=== PATIENT | male | born 1955 | race Caucasian/White ===

== ENCOUNTER → 2020-07-25 | Outpatient (CLI) | payer MEDICARE ==
[~2020-07-25] MED LIST: ADVAIR 250/501 EA INH; DALI500T PO; PROAIR HFA0.09 MG/AC INH; ROCEPHIN2 GM/50 ML IV; SOLU-MEDROL IV; SOLU-MEDROL40 MG IV; SPIRIVA18 MCG PO
[2020-07-25 12:03] LABS: HEMATOCRIT 43.9 % (42.0-52.0); MEAN CELL VOLUME 92.2 fl (80.0-94.0); MEAN CORPUSCULAR HGB 27.9 pg (27.0-31.0); MEAN CORPUSCULAR HGB CONC 30.3 g/dl (33.0-37.0); MEAN PLATELET VOLUME 11.1 fl (9.6-12.3); RED BLOOD COUNT 4.76 10*6/uL (4.50-5.90); RED CELL DISTRI WIDTH 13.2 % (0-14.5); WHITE BLOOD COUNT 10.6 10*3/uL (4.8-10.8)
[2020-07-25 12:19] LABS: ALBUMIN 3.2 gm/dl (3.1-4.5); ALKALINE PHOSPHATASE 114 U/L (45-117); BUN 21 mg/dl (7-24); CHLORIDE 103 mmol/L (98-107); CHOLESTEROL 165 mg/dL (<200); CREATININE 1.25 mg/dL (0.70-1.30); HDL CHOLESTEROL 60 mg/dl (40-60); LDL CHOLESTEROL 76 mg/dL (9-159); POTASSIUM 4.2 mmol/L (3.5-5.1); SGOT/AST 13 IU/L (3-35); SGPT/ALT 26 U/L (12-78); SODIUM 138 mmol/L (136-145); TOTAL PROTEIN 7.8 gm/dL (6.4-8.2); TRIGLYCERIDES 147 mg/dl (<150); VLDL CHOLESTEROL 29 mg/dL (6-40)
== END | disposition home or self-care (01) ==
LOC: LAB 11:43
PROVIDERS: ATTEND Physician Assistant
DX: J44.9 Chronic obstructive pulmonary disease, unspecified (principal); I10 Essential (primary) hypertension; R60.0 Localized edema; E66.9 Obesity, unspecified

== ENCOUNTER 2021-07-12 16:56 | Inpatient (IN) | payer MEDICARE ==
[~2021-07-12] VITALS: Ht 190.5 cm; Wt 135.7 kg
[2021-07-12 17:16] VITALS: BP 127/73
[2021-07-12] MEDS ORDERED: POTASSIUM CHLO10 ME5 PO (17:29)
[2021-07-12] MEDS ORDERED: FUROSEMIDE20 M1 PO (17:29)
[2021-07-12] MEDS ORDERED: IRBESARTAN150 MG PO (17:30)
[2021-07-12 17:54] LABS: BASO % 0.4 % (0.0-1.0); EOS # 0.6 10*3/uL (0.0-0.4); EOS % 6.9 % (1.0-4.0); HEMATOCRIT 41.5 % (42.0-52.0); LYMPH # 1.8 10*3/uL (1.3-4.4); LYMPH % 20.2 % (27.0-41.0); MEAN CELL VOLUME 97.2 fl (80.0-94.0); MEAN CORPUSCULAR HGB 28.8 pg (27.0-31.0); MEAN CORPUSCULAR HGB CONC 29.6 g/dl (33.0-37.0); MEAN PLATELET VOLUME 10.8 fl (9.6-12.3); MONO # 0.7 10*3/uL (0.1-1.0); MONO % 7.2 % (3.0-9.0); NEUT # 5.8 10*3/uL (2.3-7.9); PLATELET COUNT AUTOMATED 223 10*3/uL (130-400); RED BLOOD COUNT 4.27 10*6/uL (4.50-5.90); RED CELL DISTRI WIDTH 13.6 % (0-14.5)
[2021-07-12 18:09] LABS: ALBUMIN 2.9 gm/dl (3.1-4.5); ALKALINE PHOSPHATASE 101 U/L (45-117); BUN 27 mg/dl (7-24); CHLORIDE 103 mmol/L (98-107); CREATININE 1.15 mg/dL (0.70-1.30); LIPASE 58 U/L (73-393); POTASSIUM 4.6 mmol/L (3.5-5.1); SGOT/AST 16 IU/L (3-35); SGPT/ALT 28 U/L (12-78); SODIUM 141 mmol/L (136-145); TOTAL PROTEIN 7.8 gm/dL (6.4-8.2)
[2021-07-12 18:10] LABS: TROPONIN I < 0.015 ng/ml (<0.045)
[2021-07-12 21:40] VITALS: BP 166/63
[2021-07-12] MEDS ORDERED: INCRUSE ELLI62.5 MCG INH (22:00)
[2021-07-12] MEDS ORDERED: ASPIRIN ADULT L81 M1 PO (22:01)
[2021-07-13] VITALS: BP 139/60
[2021-07-13 05:40] LABS: ALBUMIN 2.5 gm/dl (3.1-4.5); ALKALINE PHOSPHATASE 95 U/L (45-117); BUN 25 mg/dl (7-24); CHLORIDE 104 mmol/L (98-107); CREATININE 1.07 mg/dL (0.70-1.30); POTASSIUM 4.6 mmol/L (3.5-5.1); SGOT/AST 12 IU/L (3-35); SGPT/ALT 24 U/L (12-78); SODIUM 140 mmol/L (136-145); TOTAL PROTEIN 7.1 gm/dL (6.4-8.2)
[2021-07-13 06:12] LABS: BASO # 0.1 10*3/uL (0.0-0.1); BASO % 0.8 % (0.0-1.0); EOS # 0.7 10*3/uL (0.0-0.4); EOS % 7.5 % (1.0-4.0); HEMATOCRIT 40.4 % (42.0-52.0); LYMPH % 21.9 % (27.0-41.0); MEAN CELL VOLUME 97.8 fl (80.0-94.0); MEAN CORPUSCULAR HGB 28.3 pg (27.0-31.0); MEAN PLATELET VOLUME 11.2 fl (9.6-12.3); MONO # 0.7 10*3/uL (0.1-1.0); MONO % 8.2 % (3.0-9.0); NEUT # 5.5 10*3/uL (2.3-7.9); NEUT % 61.2 % (47.0-73.0); PLATELET COUNT AUTOMATED 220 10*3/uL (130-400); RED BLOOD COUNT 4.13 10*6/uL (4.50-5.90); RED CELL DISTRI WIDTH 13.6 % (0-14.5); WHITE BLOOD COUNT 9.1 10*3/uL (4.8-10.8)
[2021-07-13 08:00] VITALS: BP 142/57
[2021-07-13 12:00] VITALS: BP 124/80
[2021-07-13 16:00] VITALS: BP 122/58
[2021-07-13 20:00] VITALS: BP 134/62
[2021-07-13 23:00] VITALS: BP 130/62
[2021-07-14 08:00] VITALS: BP 140/51
[2021-07-14 12:00] VITALS: BP 136/54
[2021-07-14 16:00] VITALS: BP 148/81
[2021-07-14 20:00] VITALS: BP 143/67
[2021-07-15] VITALS: BP 148/63
[2021-07-15 06:15] LABS: BUN 20 mg/dl (7-24); CHLORIDE 102 mmol/L (98-107); CREATININE 1.31 mg/dL (0.70-1.30); POTASSIUM 4.2 mmol/L (3.5-5.1); SODIUM 141 mmol/L (136-145)
[2021-07-15 08:00] VITALS: BP 129/76
[2021-07-15 12:00] VITALS: BP 130/62
[2021-07-15] MEDS ORDERED: VIBRAMYCIN100 MG PO ×2 (13:44)
[2021-07-15] MEDS ORDERED: FLAGYL500 MG PO (15:51)
[2021-07-15] MEDS ORDERED: LEVOFLOXACIN750 M2 PO (15:51)
[2021-07-15] MEDS ORDERED: AMOXICILLIN500 M3 PO (15:51)
[2021-07-15 16:00] VITALS: BP 127/57
== END 2021-07-15 18:15 | disposition home or self-care (01) | DRG 603 ==
LOC: ED 16:56 → EDHOLD 17:53 → 4E 17:53
PROVIDERS: Emergency Medicine; Internal Medicine; Student in an Organized Health Care Education/Training Program; ADMIT Internal Medicine; ATTEND Internal Medicine
DX: L03.116 Cellulitis of left lower limb (principal); E87.3 Alkalosis; E44.0 Moderate protein-calorie malnutrition; N17.9 Acute kidney failure, unspecified; L03.115 Cellulitis of right lower limb; D53.9 Nutritional anemia, unspecified; I83.029 Varicose veins of left lower extremity with ulcer of unspecified site; J44.9 Chronic obstructive pulmonary disease, unspecified; R09.02 Hypoxemia; E83.41 Hypermagnesemia; R73.9 Hyperglycemia, unspecified; E66.9 Obesity, unspecified; I10 Essential (primary) hypertension; Z82.49 Family history of ischemic heart disease and other diseases of the circulatory system; Z79.2 Long term (current) use of antibiotics; Z79.51 Long term (current) use of inhaled steroids; Z79.899 Other long term (current) drug therapy; Z68.37 Body mass index [BMI] 37.0-37.9, adult

== ENCOUNTER 2021-07-18 15:38 | Inpatient (IN) | payer MEDICARE ==
[~2021-07-18] VITALS: Ht 190.5 cm; Wt 135.6 kg
[~2021-07-18 15:38] MED LIST changes: +AMOXICILLIN500 M3 PO; +ASPIRIN ADULT L81 M1 PO; +FLAGYL500 MG PO; +FUROSEMIDE20 M1 PO; +INCRUSE ELLI62.5 MCG INH; +IRBESARTAN150 MG PO; +LEVOFLOXACIN750 M2 PO; +POTASSIUM CHLO10 ME5 PO; +VIBRAMYCIN100 MG PO
[2021-07-18 15:45] VITALS: BP 135/54
[2021-07-18 19:25] VITALS: BP 110/71
[2021-07-18 19:47] LABS: BASO # 0.1 10*3/uL (0.0-0.1); BASO % 0.8 % (0.0-1.0); EOS # 0.5 10*3/uL (0.0-0.4); EOS % 5.3 % (1.0-4.0); HEMATOCRIT 41.4 % (42.0-52.0); LYMPH # 1.8 10*3/uL (1.3-4.4); LYMPH % 20.8 % (27.0-41.0); MEAN CORPUSCULAR HGB 28.3 pg (27.0-31.0); MEAN CORPUSCULAR HGB CONC 28.3 g/dl (33.0-37.0); MEAN PLATELET VOLUME 10.9 fl (9.6-12.3); MONO # 0.5 10*3/uL (0.1-1.0); NEUT # 5.8 10*3/uL (2.3-7.9); NEUT % 66.8 % (47.0-73.0); PLATELET COUNT AUTOMATED 215 10*3/uL (130-400); RED BLOOD COUNT 4.14 10*6/uL (4.50-5.90); RED CELL DISTRI WIDTH 13.6 % (0-14.5); WHITE BLOOD COUNT 8.7 10*3/uL (4.8-10.8)
[2021-07-18 20:03] LABS: ALBUMIN 3.1 gm/dl (3.1-4.5); ALKALINE PHOSPHATASE 96 U/L (45-117); BUN 18 mg/dl (7-24); CHLORIDE 103 mmol/L (98-107); CREATININE 1.09 mg/dL (0.70-1.30); POTASSIUM 4.3 mmol/L (3.5-5.1); SGOT/AST 28 IU/L (3-35); SGPT/ALT 42 U/L (12-78); SODIUM 141 mmol/L (136-145); TOTAL PROTEIN 7.7 gm/dL (6.4-8.2)
[2021-07-19 00:27] VITALS: BP 154/62
[2021-07-19 01:10] LABS: BASO % 0.5 % (0.0-1.0); EOS # 0.4 10*3/uL (0.0-0.4); EOS % 5.6 % (1.0-4.0); HEMATOCRIT 39.3 % (42.0-52.0); LYMPH # 1.5 10*3/uL (1.3-4.4); LYMPH % 19.2 % (27.0-41.0); MEAN CELL VOLUME 97.3 fl (80.0-94.0); MEAN CORPUSCULAR HGB 28.2 pg (27.0-31.0); MONO # 0.6 10*3/uL (0.1-1.0); MONO % 7.4 % (3.0-9.0); NEUT # 5.1 10*3/uL (2.3-7.9); PLATELET COUNT AUTOMATED 198 10*3/uL (130-400); RED BLOOD COUNT 4.04 10*6/uL (4.50-5.90); RED CELL DISTRI WIDTH 13.5 % (0-14.5); WHITE BLOOD COUNT 7.7 10*3/uL (4.8-10.8)
[2021-07-19 03:35] VITALS: BP 146/60
[2021-07-19 05:58] VITALS: BP 144/57
[2021-07-19 06:19] LABS: ALBUMIN 2.7 gm/dl (3.1-4.5); BUN 16 mg/dl (7-24); CHLORIDE 104 mmol/L (98-107); POTASSIUM 3.9 mmol/L (3.5-5.1); SODIUM 143 mmol/L (136-145)
[2021-07-19 06:23] LABS: ALKALINE PHOSPHATASE 84 U/L (45-117); CREATININE 1.11 mg/dL (0.70-1.30); SGOT/AST 28 IU/L (3-35); SGPT/ALT 38 U/L (12-78); TOTAL PROTEIN 6.8 gm/dL (6.4-8.2)
[2021-07-19 06:33] LABS: BASO # 0.1 10*3/uL (0.0-0.1); BASO % 0.6 % (0.0-1.0); EOS # 0.5 10*3/uL (0.0-0.4); EOS % 5.8 % (1.0-4.0); HEMATOCRIT 38.8 % (42.0-52.0); LYMPH # 1.6 10*3/uL (1.3-4.4); LYMPH % 19.6 % (27.0-41.0); MEAN CELL VOLUME 99.5 fl (80.0-94.0); MEAN CORPUSCULAR HGB 28.7 pg (27.0-31.0); MEAN CORPUSCULAR HGB CONC 28.9 g/dl (33.0-37.0); MEAN PLATELET VOLUME 11.1 fl (9.6-12.3); MONO # 0.7 10*3/uL (0.1-1.0); MONO % 8.2 % (3.0-9.0); NEUT # 5.2 10*3/uL (2.3-7.9); NEUT % 65.4 % (47.0-73.0); PLATELET COUNT AUTOMATED 201 10*3/uL (130-400); RED CELL DISTRI WIDTH 13.5 % (0-14.5); WHITE BLOOD COUNT 7.9 10*3/uL (4.8-10.8)
[2021-07-19 06:52] LABS: ACT PARTIAL THROMBO TIME 33.2 SECONDS (20.0-32.1)
[2021-07-19 08:04] VITALS: BP 138/63
[2021-07-19 12:11] VITALS: BP 139/58
[2021-07-19] MEDS ORDERED: PROTONIX40 MG PO (12:26)
[2021-07-19] MEDS ORDERED: COLACE100 MG PO (12:26)
[2021-07-19 14:41] VITALS: BP 133/59
== END 2021-07-19 23:02 | disposition home or self-care (01) | DRG 393 ==
LOC: ED 15:38 → EDHOLD 20:31
PROVIDERS: Hospitalist; Internal Medicine; ADMIT Family Medicine; ATTEND Family Medicine
DX: K64.9 Unspecified hemorrhoids (principal); E43 Unspecified severe protein-calorie malnutrition; J96.10 Chronic respiratory failure, unspecified whether with hypoxia or hypercapnia; D53.9 Nutritional anemia, unspecified; E83.41 Hypermagnesemia; J44.9 Chronic obstructive pulmonary disease, unspecified; R73.9 Hyperglycemia, unspecified; I10 Essential (primary) hypertension; Z87.891 Personal history of nicotine dependence; Z79.2 Long term (current) use of antibiotics; Z79.899 Other long term (current) drug therapy; Z79.51 Long term (current) use of inhaled steroids; Z79.82 Long term (current) use of aspirin; Z82.49 Family history of ischemic heart disease and other diseases of the circulatory system; Z68.37 Body mass index [BMI] 37.0-37.9, adult

== ENCOUNTER → 2022-04-03 | Outpatient (CLI) | payer MEDICARE ==
[~2022-04-03] MED LIST changes: +COLACE100 MG PO; +PROTONIX40 MG PO
[2022-04-03 09:58] LABS: BASO # 0.1 10*3/uL (0.0-0.1); BASO % 0.7 % (0.0-1.0); EOS # 0.5 10*3/uL (0.0-0.4); EOS % 6.4 % (1.0-4.0); HEMATOCRIT 41.1 % (42.0-52.0); LYMPH # 1.6 10*3/uL (1.3-4.4); LYMPH % 20.4 % (27.0-41.0); MEAN CELL VOLUME 98.8 fl (80.0-94.0); MEAN CORPUSCULAR HGB 29.3 pg (27.0-31.0); MEAN CORPUSCULAR HGB CONC 29.7 g/dl (33.0-37.0); MEAN PLATELET VOLUME 11.5 fl (9.6-12.3); MONO # 0.6 10*3/uL (0.1-1.0); MONO % 7.8 % (3.0-9.0); NEUT % 64.3 % (47.0-73.0); PLATELET COUNT AUTOMATED 163 10*3/uL (130-400); RED BLOOD COUNT 4.16 10*6/uL (4.50-5.90); WHITE BLOOD COUNT 7.7 10*3/uL (4.8-10.8)
[2022-04-03 10:09] LABS: ACT PARTIAL THROMBO TIME 32.6 SECONDS (20.0-32.1)
[2022-04-03 10:38] LABS: BUN 20 mg/dl (7-24); CHLORIDE 105 mmol/L (98-107); CREATININE 1.11 mg/dL (0.70-1.30); POTASSIUM 4.5 mmol/L (3.5-5.1); SODIUM 142 mmol/L (136-145)
== END | disposition home or self-care (01) ==
LOC: LAB 09:31
PROVIDERS: ATTEND Surgery Vascular Surgery
DX: Z01.818 Encounter for other preprocedural examination (principal); R06.02 Shortness of breath

== ENCOUNTER 2022-05-28 17:20 | Inpatient (IN) | payer MEDICARE ==
[~2022-05-28] VITALS: Ht 190.5 cm; Wt 130.7 kg
[2022-05-28 17:42] VITALS: BP 128/74
[2022-05-28 17:57] LABS: BASO % 0.4 % (0.0-1.0); EOS # 0.4 10*3/uL (0.0-0.4); EOS % 4.3 % (1.0-4.0); HEMATOCRIT 42.7 % (42.0-52.0); LYMPH # 1.5 10*3/uL (1.3-4.4); LYMPH % 16.6 % (27.0-41.0); MEAN CELL VOLUME 94.9 fl (80.0-94.0); MEAN CORPUSCULAR HGB 28.2 pg (27.0-31.0); MEAN CORPUSCULAR HGB CONC 29.7 g/dl (33.0-37.0); MEAN PLATELET VOLUME 11.1 fl (9.6-12.3); MONO # 0.5 10*3/uL (0.1-1.0); NEUT # 6.5 10*3/uL (2.3-7.9); NEUT % 72.1 % (47.0-73.0); PLATELET COUNT AUTOMATED 227 10*3/uL (130-400); RED CELL DISTRI WIDTH 13.9 % (0-14.5)
[2022-05-28 18:07] LABS: ACT PARTIAL THROMBO TIME 31.6 SECONDS (20.0-32.1)
[2022-05-28 18:12] LABS: ALKALINE PHOSPHATASE 103 U/L (45-117); BUN 21 mg/dl (7-24); CHLORIDE 102 mmol/L (98-107); CREATININE 1.04 mg/dL (0.70-1.30); POTASSIUM 4.3 mmol/L (3.5-5.1); SGOT/AST 17 IU/L (3-35); SGPT/ALT 24 U/L (12-78); SODIUM 139 mmol/L (136-145); TOTAL PROTEIN 7.6 gm/dL (6.4-8.2)
[2022-05-28 18:16] LABS: ABG BASE EXCESS 9.3 mmol/L (-2.0-2.0); ARTERIAL BLOOD GAS PH 7.405 (7.35-7.45); ARTERIAL BLOOD GAS PO2 68.1 (80-90)
[2022-05-28] MEDS ORDERED: CLOPIDOGREL75 MG PO (18:56)
[2022-05-28 20:31] VITALS: BP 163/76
[2022-05-28 20:40] VITALS: BP 163/78
[2022-05-29] VITALS: BP 118/69
[2022-05-29 06:14] LABS: BUN 21 mg/dl (7-24); CHLORIDE 102 mmol/L (98-107); CREATININE 0.96 mg/dL (0.70-1.30); POTASSIUM 4.2 mmol/L (3.5-5.1); SGOT/AST 11 IU/L (3-35); SGPT/ALT 22 U/L (12-78); SODIUM 138 mmol/L (136-145)
[2022-05-29 06:15] LABS: ALKALINE PHOSPHATASE 100 U/L (45-117); TOTAL PROTEIN 7.6 gm/dL (6.4-8.2)
[2022-05-29 06:22] LABS: HEMATOCRIT 41.5 % (42.0-52.0); MEAN CELL VOLUME 93.5 fl (80.0-94.0); MEAN CORPUSCULAR HGB 27.9 pg (27.0-31.0); MEAN CORPUSCULAR HGB CONC 29.9 g/dl (33.0-37.0); MEAN PLATELET VOLUME 11.5 fl (9.6-12.3); PLATELET COUNT AUTOMATED 237 10*3/uL (130-400); RED BLOOD COUNT 4.44 10*6/uL (4.50-5.90); RED CELL DISTRI WIDTH 13.9 % (0-14.5); WHITE BLOOD COUNT 6.9 10*3/uL (4.8-10.8)
[2022-05-29 06:26] LABS: MANUAL DIFF REFLEX YES
[2022-05-29 07:03] LABS: TOTAL CELLS COUNTED 100 #CELLS
[2022-05-29 07:04] LABS: PLATELET SUFFICIENCY NORMAL (NORMAL); POLYCHROMASIA SLIGHT
[2022-05-29 08:00] VITALS: BP 163/78
[2022-05-29 12:00] VITALS: BP 127/73
[2022-05-29 15:07] VITALS: BP 114/87
[2022-05-29 17:00] LABS: BILIRUBIN Negative (Negative); BLOOD Negative (Negative); CLARITY Clear (Clear); COLOR Yellow (Yellow); GLUCOSE Negative (Negative); KETONE Trace (Negative); LEUKO ESTERASE 2+ (Negative); NITRITE Negative (Negative); SPECIFIC GRAVITY 1.025 (1.001-1.030); UROBILINOGEN 0.2 E.U./dl (0.0-1.0)
[2022-05-29 17:10] LABS: BACTERIA 1+; MUCOUS 1+; WBC 21-30 wbc/hpf (0-5)
[2022-05-29 20:00] VITALS: BP 134/56
[2022-05-30] VITALS: BP 141/56
[2022-05-30 06:10] LABS: BASO % 0.1 % (0.0-1.0); HEMATOCRIT 40.8 % (42.0-52.0); LYMPH # 1.1 10*3/uL (1.3-4.4); MEAN CELL VOLUME 94.9 fl (80.0-94.0); MEAN CORPUSCULAR HGB 28.6 pg (27.0-31.0); MEAN CORPUSCULAR HGB CONC 30.1 g/dl (33.0-37.0); MEAN PLATELET VOLUME 11.4 fl (9.6-12.3); MONO # 0.5 10*3/uL (0.1-1.0); MONO % 3.6 % (3.0-9.0); NEUT # 12.3 10*3/uL (2.3-7.9); NEUT % 87.2 % (47.0-73.0); PLATELET COUNT AUTOMATED 250 10*3/uL (130-400); RED CELL DISTRI WIDTH 14.2 % (0-14.5); WHITE BLOOD COUNT 14.1 10*3/uL (4.8-10.8)
[2022-05-30 06:28] LABS: BUN 24 mg/dl (7-24); CHLORIDE 103 mmol/L (98-107); POTASSIUM 4.7 mmol/L (3.5-5.1); SODIUM 139 mmol/L (136-145)
[2022-05-30 08:15] VITALS: BP 141/50
[2022-05-30 12:45] VITALS: BP 138/48
[2022-05-30 16:00] VITALS: BP 165/62
[2022-05-30 20:00] VITALS: BP 138/63
[2022-05-31] VITALS: BP 128/78
[2022-05-31 08:00] VITALS: BP 146/65
[2022-05-31 11:52] VITALS: BP 144/61
[2022-05-31] MEDS ORDERED: LEVOFLOXACIN500 MG PO (12:07)
[2022-05-31] MEDS ORDERED: PREDNISONE10 MG PO (12:07)
== END 2022-05-31 14:21 | disposition home health service (06) | DRG 871 ==
LOC: ED 17:20 → EDHOLD 18:22 → 5E 18:22 → EDHOLD 19:59 → 5E 20:27
PROVIDERS: Emergency Medicine; Family Medicine; ADMIT Student in an Organized Health Care Education/Training Program; ATTEND Student in an Organized Health Care Education/Training Program
DX: A41.9 Sepsis, unspecified organism (principal); E43 Unspecified severe protein-calorie malnutrition; J96.01 Acute respiratory failure with hypoxia; J96.02 Acute respiratory failure with hypercapnia; J44.1 Chronic obstructive pulmonary disease with (acute) exacerbation; E83.41 Hypermagnesemia; I10 Essential (primary) hypertension; R73.9 Hyperglycemia, unspecified; D53.9 Nutritional anemia, unspecified; I87.2 Venous insufficiency (chronic) (peripheral); Z68.36 Body mass index [BMI] 36.0-36.9, adult; Z87.891 Personal history of nicotine dependence; Z82.49 Family history of ischemic heart disease and other diseases of the circulatory system; Z87.19 Personal history of other diseases of the digestive system

== ENCOUNTER → 2023-09-08 | Outpatient (CLI) | payer OTHER ==
[~2023-09-08] MED LIST changes: +CLOPIDOGREL75 MG PO; +DOXYCYCLINE HY100 M3 PO; +LASIX20 MG PO; +LEVOFLOXACIN500 MG PO; +METOPROLOL SUCC25 M2 PO; +PREDNISONE10 MG PO; +VITAMIN D250 MCG PO; +ZITHROMAX TRI-500 M1 PO
== END | disposition home or self-care (01) ==
LOC: WOUNDCARE 01:50
PROVIDERS: ATTEND Nurse Practitioner Family
DX: I70.233 Atherosclerosis of native arteries of right leg with ulceration of ankle (principal); L97.311 Non-pressure chronic ulcer of right ankle limited to breakdown of skin; I70.238 Atherosclerosis of native arteries of right leg with ulceration of other part of lower leg; L97.821 Non-pressure chronic ulcer of other part of left lower leg limited to breakdown of skin; R60.0 Localized edema; I87.2 Venous insufficiency (chronic) (peripheral); I11.0 Hypertensive heart disease with heart failure; I50.9 Heart failure, unspecified; J43.9 Emphysema, unspecified; Z87.891 Personal history of nicotine dependence

== ENCOUNTER 2024-01-19 16:43 | Inpatient (IN) | payer OTHER ==
[~2024-01-19] VITALS: Ht 190.5 cm; Wt 127.7 kg
[2024-01-19 16:52] VITALS: BP 91/61
[2024-01-19 17:32] LABS: MEAN CELL VOLUME 99.8 fl (80.0-94.0); MEAN CORPUSCULAR HGB 28.3 pg (27.0-31.0); MEAN CORPUSCULAR HGB CONC 28.3 g/dl (33.0-37.0); MEAN PLATELET VOLUME 11.2 fl (9.6-12.3); PLATELET COUNT AUTOMATED 155 10*3/uL (130-400); RED BLOOD COUNT 4.21 10*6/uL (4.50-5.90); RED CELL DISTRI WIDTH 14.2 % (0-14.5); WHITE BLOOD COUNT 23.4 10*3/uL (4.8-10.8)
[2024-01-19 17:39] LABS: MANUAL DIFF REFLEX YES
[2024-01-19 17:50] LABS: ACT PARTIAL THROMBO TIME 32.8 SECONDS (20.0-32.1)
[2024-01-19] MEDS ORDERED: AZITHROMYCIN 250 ML IV ONE (17:50)
[2024-01-19] MEDS ORDERED: SODIUM CHLORIDE 0.9% 1,000 ML IV SCH (17:50)
[2024-01-19] MEDS ORDERED: Ceftriaxone Sodium 1 GM/10 ML SYR IV ONE (17:50)
[2024-01-19 17:51] LABS: PLATELET SUFFICIENCY NORMAL (NORMAL); TOTAL CELLS COUNTED 100 #CELLS
[2024-01-19 17:52] LABS: OVALOCYTES FEW; SPHEROCYTES FEW; STOMATOCYTE FEW
[2024-01-19 17:53] LABS: BILIRUBIN Negative (Negative); BLOOD Negative (Negative); CLARITY Clear (Clear); COLOR Dark Yellow (Yellow); GLUCOSE Negative (Negative); KETONE Trace (Negative); LEUKO ESTERASE 1+ (Negative); NITRITE Negative (Negative); SPECIFIC GRAVITY 1.025 (1.001-1.030)
[2024-01-19 17:54] LABS: POTASSIUM 4.1 mmol/L (3.4-5.1); TOTAL PROTEIN 7.1 gm/dL (6.0-8.0)
[2024-01-19 18:03] LABS: MUCOUS 2+; RBC 0-2 rbc/hpf (0-2); WBC 16-20 wbc/hpf (0-5)
[2024-01-19 19:02] VITALS: BP 111/69
[2024-01-19] MEDS ORDERED: ACETAMINOPHEN 325 MG TAB PO PRN (19:45)
[2024-01-19] MEDS ORDERED: BISACODYL 5 MG TAB PO PRN (19:45)
[2024-01-19] MEDS ORDERED: Acetaminophen/Hydrocodone 5 MG/325 MG TABLET PO PRN (19:45)
[2024-01-19 20:27] VITALS: BP 131/55
[2024-01-19 21:00] VITALS: BP 194/61
[2024-01-19] MEDS ORDERED: SODIUM CHLORIDE 0.9% 1,000 ML IV ONE (21:10)
[2024-01-19] MEDS ORDERED: SODIUM CHLORIDE 0.9% 100 ML BAG IV ONE (21:25)
[2024-01-19] MEDS ORDERED: IOHEXOL 350 MG/ML 100 ML VIAL IV ONE (21:25)
[2024-01-19 21:37] LABS: ARTERIAL BLOOD GAS PH 7.229 (7.35-7.45)
[2024-01-19] MEDS ORDERED: Albuterol Sulf/Ipratropium 3 ML VIAL NEB SCH (21:50)
[2024-01-19] MEDS ORDERED: methylPREDNISolone sod succ 125 MG VIAL IV ONE (21:50)
[2024-01-19] MEDS ORDERED: GUAIFENESIN 600 MG TAB ER PO SCH (22:00)
[2024-01-19 23:00] VITALS: BP 127/60
[2024-01-19 23:52] LABS: ABG BASE EXCESS 9.2 mmol/L (-2.0-2.0); ARTERIAL BLOOD GAS PH 7.329 (7.35-7.45)
[2024-01-20] MEDS ORDERED: LORazepam 1 MG TAB PO PRN (04:25)
[2024-01-20 05:20] VITALS: BP 95/63
[2024-01-20 06:28] LABS: HEMATOCRIT 38.9 % (42.0-52.0); MEAN CELL VOLUME 99.7 fl (80.0-94.0); MEAN CORPUSCULAR HGB 27.9 pg (27.0-31.0); MEAN PLATELET VOLUME 11.8 fl (9.6-12.3); PLATELET COUNT AUTOMATED 151 10*3/uL (130-400); RED CELL DISTRI WIDTH 14.5 % (0-14.5); WHITE BLOOD COUNT 27.6 10*3/uL (4.8-10.8)
[2024-01-20 06:29] LABS: MANUAL DIFF REFLEX YES
[2024-01-20 06:32] LABS: FREE T4 0.88 ng/dl (0.89-1.76); POTASSIUM 4.3 mmol/L (3.4-5.1); TOTAL PROTEIN 6.3 gm/dL (6.0-8.0)
[2024-01-20 07:16] LABS: PLATELET SUFFICIENCY NORMAL (NORMAL); POLYCHROMASIA SLIGHT; TOTAL CELLS COUNTED 100 #CELLS
[2024-01-20 07:17] LABS: BURR CELLS FEW; OVALOCYTES FEW; SCHISTOCYTES FEW
[2024-01-20 07:18] LABS: ARTERIAL BLOOD GAS PH 7.362 (7.35-7.45)
[2024-01-20 08:00] VITALS: BP 98/65
[2024-01-20 08:05] LABS: VITAMIN D, 25-HYDROXY 16.1 ng/mL (30-100)
[2024-01-20] MEDS ORDERED: Clopidogrel Hydrogen Sulfate 75 MG TAB PO SCH (10:00)
[2024-01-20] MEDS ORDERED: ROFLUMILAST 500 MCG TAB PO SCH (10:00)
[2024-01-20] MEDS ORDERED: Enoxaparin Sodium 40 MG/0.4 ML SYR SC SCH (10:00)
[2024-01-20] MEDS ORDERED: ASPIRIN, CHEWABLE 81 MG TAB PO SCH (10:00)
[2024-01-20] MEDS ORDERED: METOPROLOL SUCCINATE XR 25 MG TAB PO SCH (10:00)
[2024-01-20] MEDS ORDERED: Ceftriaxone Sodium 2 GM,IV 1 EA in SYRINGE INFUSION 20 ML IV SCH (10:00)
[2024-01-20] MEDS ORDERED: methylPREDNISolone sod succ 40 MG VIAL IV SCH (10:00)
[2024-01-20] MEDS ORDERED: METOPROLOL SUCCINATE XR 50 MG TAB PO SCH (10:35)
[2024-01-20 12:00] VITALS: BP 114/47
[2024-01-20 16:00] VITALS: BP 118/45
[2024-01-20] MEDS ORDERED: AZITHROMYCIN 250 ML IV SCH (17:00)
[2024-01-20] MEDS ORDERED: Ceftriaxone Sodium 1 GM,IV 1 EA in SYRINGE INFUSION 10 ML IV SCH (18:00)
[2024-01-20 20:00] VITALS: BP 132/50
[2024-01-21] VITALS: BP 104/52
[2024-01-21 06:55] LABS: HEMATOCRIT 36.5 % (42.0-52.0); MANUAL DIFF REFLEX YES; MEAN CELL VOLUME 99.7 fl (80.0-94.0); MEAN CORPUSCULAR HGB 28.1 pg (27.0-31.0); MEAN CORPUSCULAR HGB CONC 28.2 g/dl (33.0-37.0); MEAN PLATELET VOLUME 12.3 fl (9.6-12.3); PLATELET COUNT AUTOMATED 138 10*3/uL (130-400); RED BLOOD COUNT 3.66 10*6/uL (4.50-5.90); RED CELL DISTRI WIDTH 14.4 % (0-14.5); WHITE BLOOD COUNT 22.6 10*3/uL (4.8-10.8)
[2024-01-21 07:39] LABS: PLATELET SUFFICIENCY NORMAL (NORMAL); POLYCHROMASIA SLIGHT; TOTAL CELLS COUNTED 100 #CELLS
[2024-01-21 07:40] LABS: OVALOCYTES FEW; TOXIC GRANULATION SLIGHT
[2024-01-21 07:46] LABS: BUN 34 mg/dl (9-23); CHLORIDE 99 mmol/L (98-107); POTASSIUM 4.2 mmol/L (3.4-5.1)
[2024-01-21 08:00] VITALS: BP 137/57
[2024-01-21 12:00] VITALS: BP 118/50
[2024-01-21 16:00] VITALS: BP 117/46
[2024-01-21 20:00] VITALS: BP 138/63
[2024-01-22] VITALS (7 sets, daily range): BP systolic 142–176; BP diastolic 54–80
[2024-01-22] MEDS ORDERED: Doxycycline Hyclate 100 MG CAP PO SCH (10:00)
[2024-01-23] VITALS: BP 153/49
[2024-01-23 08:00] VITALS: BP 151/68
[2024-01-23 09:49] LABS: BASO % 0.1 % (0.0-1.0); HEMATOCRIT 34.2 % (42.0-52.0); LYMPH # 0.7 10*3/uL (1.3-4.4); LYMPH % 6.9 % (27.0-41.0); MEAN CELL VOLUME 97.2 fl (80.0-94.0); MEAN CORPUSCULAR HGB 28.4 pg (27.0-31.0); MEAN CORPUSCULAR HGB CONC 29.2 g/dl (33.0-37.0); MEAN PLATELET VOLUME 11.4 fl (9.6-12.3); MONO # 0.4 10*3/uL (0.1-1.0); MONO % 3.9 % (3.0-9.0); NEUT # 8.7 10*3/uL (2.3-7.9); NUCLEATED RED BLOOD CELL 0.3 % (0.0-0.0); PLATELET COUNT AUTOMATED 153 10*3/uL (130-400); RED BLOOD COUNT 3.52 10*6/uL (4.50-5.90); RED CELL DISTRI WIDTH 14.1 % (0-14.5); WHITE BLOOD COUNT 9.9 10*3/uL (4.8-10.8)
[2024-01-23 10:09] LABS: BUN 35 mg/dl (9-23); CHLORIDE 99 mmol/L (98-107)
[2024-01-23 12:00] VITALS: BP 163/74
[2024-01-23 16:00] VITALS: BP 160/70
[2024-01-23 20:00] VITALS: BP 149/92
[2024-01-24] VITALS: BP 161/66
[2024-01-24 07:25] LABS: BASO % 0.1 % (0.0-1.0); HEMATOCRIT 34.2 % (42.0-52.0); LYMPH # 0.9 10*3/uL (1.3-4.4); MEAN CORPUSCULAR HGB 27.8 pg (27.0-31.0); MEAN CORPUSCULAR HGB CONC 29.2 g/dl (33.0-37.0); MEAN PLATELET VOLUME 11.7 fl (9.6-12.3); MONO # 0.5 10*3/uL (0.1-1.0); MONO % 5.1 % (3.0-9.0); NEUT # 7.7 10*3/uL (2.3-7.9); NEUT % 82.2 % (47.0-73.0); PLATELET COUNT AUTOMATED 185 10*3/uL (130-400); RED CELL DISTRI WIDTH 13.9 % (0-14.5); WHITE BLOOD COUNT 9.3 10*3/uL (4.8-10.8)
[2024-01-24 08:00] VITALS: BP 164/62
[2024-01-24 08:11] LABS: BUN 32 mg/dl (9-23); CHLORIDE 99 mmol/L (98-107); POTASSIUM 4.7 mmol/L (3.4-5.1)
[2024-01-24 12:00] VITALS: BP 159/69
[2024-01-24 16:00] VITALS: BP 1459/69; BP 159/69
[2024-01-24 20:00] VITALS: BP 155/65
[2024-01-25] VITALS: BP 141/54
[2024-01-25 06:06] LABS: HEMATOCRIT 34.9 % (42.0-52.0); MEAN CELL VOLUME 96.9 fl (80.0-94.0); MEAN CORPUSCULAR HGB 28.6 pg (27.0-31.0); MEAN CORPUSCULAR HGB CONC 29.5 g/dl (33.0-37.0); MEAN PLATELET VOLUME 11.3 fl (9.6-12.3); PLATELET COUNT AUTOMATED 197 10*3/uL (130-400); RED CELL DISTRI WIDTH 13.7 % (0-14.5)
[2024-01-25 06:14] LABS: MANUAL DIFF REFLEX YES
[2024-01-25 06:17] LABS: BUN 27 mg/dl (9-23); CHLORIDE 101 mmol/L (98-107)
[2024-01-25 07:08] LABS: PLATELET SUFFICIENCY NORMAL (NORMAL); TOTAL CELLS COUNTED 100 #CELLS
[2024-01-25 07:13] LABS: POLYCHROMASIA SLIGHT
[2024-01-25 08:00] VITALS: BP 156/66
[2024-01-25 12:00] VITALS: BP 154/65
[2024-01-25 16:00] VITALS: BP 157/69
[2024-01-25 20:00] VITALS: BP 166/71
[2024-01-26] VITALS: BP 147/65
[2024-01-26 08:00] VITALS: BP 156/55
[2024-01-26] MEDS ORDERED: PREDNISONE10 MG PO ×2 (11:43→14:50)
[2024-01-26] MEDS ORDERED: DOXYCYCLINE MO100 MG PO (11:43)
[2024-01-26 12:00] VITALS: BP 158/62
[2024-01-26] MEDS ORDERED: VIBRAMYCIN100 MG PO (14:50)
== END 2024-01-26 15:24 | disposition home or self-care (01) | DRG 871 ==
LOC: ED 16:43 → EDHOLD 18:19 → 4E 18:19
PROVIDERS: Emergency Medicine; Internal Medicine; Student in an Organized Health Care Education/Training Program; ADMIT Internal Medicine; ATTEND Internal Medicine
PROC: 5A09357 Assistance with Respiratory Ventilation, Less than 24 Consecutive Hours, Continuous Positive Airway Pressure (ICD-10-PCS; principal; 2024-01-19)
PROC: 5A09357 Assistance with Respiratory Ventilation, Less than 24 Consecutive Hours, Continuous Positive Airway Pressure (ICD-10-PCS; 2024-01-20)
PROC: 5A0935A Assistance with Respiratory Ventilation, Less than 24 Consecutive Hours, High Flow/Velocity Cannula (ICD-10-PCS; 2024-01-20)
PROC: 5A09357 Assistance with Respiratory Ventilation, Less than 24 Consecutive Hours, Continuous Positive Airway Pressure (ICD-10-PCS; 2024-01-21)
PROC: 5A0935A Assistance with Respiratory Ventilation, Less than 24 Consecutive Hours, High Flow/Velocity Cannula (ICD-10-PCS; 2024-01-21)
PROC: 5A09357 Assistance with Respiratory Ventilation, Less than 24 Consecutive Hours, Continuous Positive Airway Pressure (ICD-10-PCS; 2024-01-22)
PROC: 5A0935A Assistance with Respiratory Ventilation, Less than 24 Consecutive Hours, High Flow/Velocity Cannula (ICD-10-PCS; 2024-01-22)
PROC: 5A09357 Assistance with Respiratory Ventilation, Less than 24 Consecutive Hours, Continuous Positive Airway Pressure (ICD-10-PCS; 2024-01-23)
PROC: 5A0945A Assistance with Respiratory Ventilation, 24-96 Consecutive Hours, High Flow/Velocity Cannula (ICD-10-PCS; 2024-01-23)
DX: A41.9 Sepsis, unspecified organism (principal); J15.69 Pneumonia due to other Gram-negative bacteria; J96.22 Acute and chronic respiratory failure with hypercapnia; J96.21 Acute and chronic respiratory failure with hypoxia; E87.20 Acidosis, unspecified; J44.1 Chronic obstructive pulmonary disease with (acute) exacerbation; J44.0 Chronic obstructive pulmonary disease with (acute) lower respiratory infection; I50.32 Chronic diastolic (congestive) heart failure; R65.20 Severe sepsis without septic shock; D53.9 Nutritional anemia, unspecified; R73.9 Hyperglycemia, unspecified; N40.0 Benign prostatic hyperplasia without lower urinary tract symptoms; K57.30 Diverticulosis of large intestine without perforation or abscess without bleeding; I87.2 Venous insufficiency (chronic) (peripheral); I11.0 Hypertensive heart disease with heart failure; E66.9 Obesity, unspecified; Z99.81 Dependence on supplemental oxygen; Z87.891 Personal history of nicotine dependence; Z82.49 Family history of ischemic heart disease and other diseases of the circulatory system; Z79.82 Long term (current) use of aspirin; Z79.51 Long term (current) use of inhaled steroids; Z79.899 Other long term (current) drug therapy; Z68.35 Body mass index [BMI] 35.0-35.9, adult

== ENCOUNTER → 2024-02-01 | Outpatient (CLI) | payer OTHER ==
[~2024-02-01] MED LIST changes: +DOXYCYCLINE MO100 MG PO
[2024-02-01 14:35] LABS: HEMATOCRIT 36.1 % (42.0-52.0); MEAN CELL VOLUME 98.9 fl (80.0-94.0); MEAN CORPUSCULAR HGB 27.9 pg (27.0-31.0); MEAN CORPUSCULAR HGB CONC 28.3 g/dl (33.0-37.0); MEAN PLATELET VOLUME 10.5 fl (9.6-12.3); PLATELET COUNT AUTOMATED 190 10*3/uL (130-400); RED BLOOD COUNT 3.65 10*6/uL (4.50-5.90); RED CELL DISTRI WIDTH 14.5 % (0-14.5); WHITE BLOOD COUNT 9.7 10*3/uL (4.8-10.8)
[2024-02-01 14:38] LABS: MANUAL DIFF REFLEX YES
[2024-02-01 14:55] LABS: PLATELET SUFFICIENCY NORMAL (NORMAL); TOTAL CELLS COUNTED 100 #CELLS
[2024-02-01 14:56] LABS: BUN 27 mg/dl (9-23); CHLORIDE 98 mmol/L (98-107); OVALOCYTES FEW; POTASSIUM 4.4 mmol/L (3.4-5.1); STOMATOCYTE FEW
== END | disposition home or self-care (01) ==
LOC: LAB 14:15
PROVIDERS: ATTEND Registered Nurse
DX: J96.22 Acute and chronic respiratory failure with hypercapnia (principal); J18.9 Pneumonia, unspecified organism

== ENCOUNTER → 2024-05-25 | Outpatient (CLI) | payer OTHER | END | disposition home or self-care (01) | LOC: CARD 01:44 | PROVIDERS: ATTEND Internal Medicine Cardiovascular Disease | DX: I25.10 Atherosclerotic heart disease of native coronary artery without angina pectoris (principal); R60.0 Localized edema ==

== ENCOUNTER → 2025-04-07 | Outpatient (CLI) | payer OTHER | LOC: WOUNDCARE 00:20 | PROVIDERS: ATTEND Nurse Practitioner Primary Care | DX: I83.018 Varicose veins of right lower extremity with ulcer other part of lower leg (principal); L97.812 Non-pressure chronic ulcer of other part of right lower leg with fat layer exposed; I83.028 Varicose veins of left lower extremity with ulcer other part of lower leg; L97.822 Non-pressure chronic ulcer of other part of left lower leg with fat layer exposed; R60.0 Localized edema; I89.0 Lymphedema, not elsewhere classified; I11.0 Hypertensive heart disease with heart failure; I50.9 Heart failure, unspecified; I25.10 Atherosclerotic heart disease of native coronary artery without angina pectoris; I73.9 Peripheral vascular disease, unspecified; J44.9 Chronic obstructive pulmonary disease, unspecified; G47.00 Insomnia, unspecified; K57.90 Diverticulosis of intestine, part unspecified, without perforation or abscess without bleeding; Z98.890 Other specified postprocedural states; Z87.891 Personal history of nicotine dependence; Z79.82 Long term (current) use of aspirin; Z79.899 Other long term (current) drug therapy ==

== ENCOUNTER 2025-04-11 10:25 | Emergency (ER) | payer OTHER ==
[~2025-04-11] VITALS: Ht 190.5 cm; Wt 142.6 kg
[2025-04-11] MEDS ORDERED: Acetaminophen/Oxycodone 5 MG/325 MG TABLET PO ONE (10:30)
[2025-04-11] MEDS ORDERED: TRAMADOL HCL50 MG PO (11:17)
== END 2025-04-11 11:36 | disposition home or self-care (01) ==
LOC: ED 10:25
DX: S83.91XA Sprain of unspecified site of right knee, initial encounter (principal); M54.50 Low back pain, unspecified; J44.9 Chronic obstructive pulmonary disease, unspecified; Z79.899 Other long term (current) drug therapy; Z98.890 Other specified postprocedural states; W01.0XXA Fall on same level from slipping, tripping and stumbling without subsequent striking against object, initial encounter; Y93.9 Activity, unspecified; Y92.89 Other specified places as the place of occurrence of the external cause; Y99.8 Other external cause status

== ENCOUNTER 2025-04-17 00:43 | Inpatient (IN) | payer OTHER ==
[2025-04-17] VITALS (11 sets, daily range): BP systolic 111–170; BP diastolic 54–98
[~2025-04-17] VITALS: Ht 190.5 cm; Wt 144.2 kg
[~2025-04-17 00:43] MED LIST changes: +TRAMADOL HCL50 MG PO
[2025-04-17] MEDS ORDERED: Albuterol Sulf/Ipratropium 3 ML VIAL NEB ONE (00:55)
[2025-04-17 01:14] LABS: BASO % 0.4 % (0.0-1.0); EOS # 0.1 10*3/uL (0.0-0.4); EOS % 1.5 % (1.0-4.0); HEMATOCRIT 31.7 % (42.0-52.0); MEAN CELL VOLUME 100.6 fl (80.0-94.0); MEAN CORPUSCULAR HGB 27.6 pg (27.0-31.0); MEAN CORPUSCULAR HGB CONC 27.4 g/dl (33.0-37.0); MEAN PLATELET VOLUME 10.5 fl (9.6-12.3); MONO # 0.7 10*3/uL (0.1-1.0); MONO % 8.1 % (3.0-9.0); NEUT # 6.5 10*3/uL (2.3-7.9); NEUT % 75.9 % (47.0-73.0); PLATELET COUNT AUTOMATED 185 10*3/uL (130-400); RED BLOOD COUNT 3.15 10*6/uL (4.50-5.90); RED CELL DISTRI WIDTH 15.6 % (0-14.5); WHITE BLOOD COUNT 8.5 10*3/uL (4.8-10.8)
[2025-04-17 01:26] LABS: ACT PARTIAL THROMBO TIME 28.6 SECONDS (20.0-32.1)
[2025-04-17 01:35] LABS: ALKALINE PHOSPHATASE 92 U/L (46-116); BUN 28 mg/dl (9-23); CHLORIDE 96 mmol/L (98-107); POTASSIUM 4.5 mmol/L (3.4-5.1); SGPT/ALT 14 U/L (5-49); TOTAL PROTEIN 6.1 gm/dL (6.0-8.0)
[2025-04-17] MEDS ORDERED: Piperacillin Sodium/Tazobact 50 ML IV ONE (02:20)
[2025-04-17] MEDS ORDERED: TEMAZEPAM 15 MG CAP PO PRN (02:55)
[2025-04-17] MEDS ORDERED: BISACODYL 10 MG SUPP R PRN (02:55)
[2025-04-17] MEDS ORDERED: MORPHINE Sulfate 2 MG/ML SYR IV PRN (02:55)
[2025-04-17] MEDS ORDERED: Magnesium Hydroxide 30 ML UDC PO PRN (02:55)
[2025-04-17] MEDS ORDERED: Acetaminophen/Hydrocodone 5 MG/325 MG TABLET PO PRN (02:55)
[2025-04-17] MEDS ORDERED: BISACODYL 5 MG TAB PO PRN (02:55)
[2025-04-17] MEDS ORDERED: ACETAMINOPHEN 650 MG SUPP R PRN (02:55)
[2025-04-17] MEDS ORDERED: ACETAMINOPHEN 325 MG TAB PO PRN (02:55)
[2025-04-17] MEDS ORDERED: Albuterol Sulf/Ipratropium 3 ML VIAL NEB SCH (03:00)
[2025-04-17] MEDS ORDERED: cefTRIAXone Sodium 1 GM VIAL ONE (03:45)
[2025-04-17] MEDS ORDERED: cefTRIAXone Sodium 1 GM in SYRINGE INFUSION 10 ML IV SCH (04:00)
[2025-04-17 04:10] LABS: ABG O2 SATURATION 88.9 % (94.0-98.0); ARTERIAL BLOOD GAS PH 7.399 (7.350-7.450); ARTERIAL BLOOD GAS PO2 56.5 mmHg (83.0-108.0)
[2025-04-17 04:13] LABS: ABG BASE EXCESS 19.8 mmol/L (-2.0-3.0)
[2025-04-17] MEDS ORDERED: Ondansetron Hydrochloride 4 MG/2 ML VIAL IV ONE (05:20)
[2025-04-17] MEDS ORDERED: Scopolamine 1 PATCH PATCH T PRN (05:25)
[2025-04-17] MEDS ORDERED: Promethazine Hydrochloride 25 MG/ML VIAL IV ONE (05:25)
[2025-04-17 05:54] LABS: ALKALINE PHOSPHATASE 94 U/L (46-116); BUN 26 mg/dl (9-23); CHLORIDE 97 mmol/L (98-107); CHOLESTEROL 132 mg/dL (<200); FREE T4 1.02 ng/dl (0.89-1.76); LDL CHOLESTEROL 64 mg/dL (9-159); POTASSIUM 4.2 mmol/L (3.4-5.1); SGPT/ALT 13 U/L (5-49); TOTAL PROTEIN 6.2 gm/dL (6.0-8.0); TRIGLYCERIDES 82 mg/dl (<150)
[2025-04-17 06:19] LABS: BASO % 0.3 % (0.0-1.0); EOS # 0.1 10*3/uL (0.0-0.4); EOS % 1.2 % (1.0-4.0); HEMATOCRIT 31.4 % (42.0-52.0); MEAN CELL VOLUME 99.4 fl (80.0-94.0); MEAN CORPUSCULAR HGB 27.8 pg (27.0-31.0); MONO # 0.8 10*3/uL (0.1-1.0); MONO % 8.6 % (3.0-9.0); NEUT # 6.6 10*3/uL (2.3-7.9); NEUT % 74.7 % (47.0-73.0); PLATELET COUNT AUTOMATED 200 10*3/uL (130-400); RED BLOOD COUNT 3.16 10*6/uL (4.50-5.90); RED CELL DISTRI WIDTH 15.5 % (0-14.5); WHITE BLOOD COUNT 8.9 10*3/uL (4.8-10.8)
[2025-04-17 06:44] LABS: VITAMIN D, 25-HYDROXY 16.2 ng/mL (30-100)
[2025-04-17] MEDS ORDERED: Doxycycline Hyclate 100 MG in SODIUM CHLORIDE 0.9% 250 ML IV SCH (08:00)
[2025-04-17 08:07] LABS: ABG O2 SATURATION 90.7 % (94.0-98.0); ARTERIAL BLOOD GAS PH 7.426 (7.350-7.450)
[2025-04-17 08:12] LABS: ABG BASE EXCESS 16.4 mmol/L (-2.0-3.0)
[2025-04-17] MEDS ORDERED: LORazepam 1 MG TAB PO ONE (08:15)
[2025-04-17] MEDS ORDERED: dexmedeTOMIDine IN 0.9 % NACL 100 ML IV SCH (09:20)
[2025-04-17] MEDS ORDERED: Enoxaparin Sodium 40 MG/0.4 ML SYR SC SCH (10:00)
[2025-04-17] MEDS ORDERED: methylPREDNISolone sod succ 40 MG VIAL IV SCH (10:00)
[2025-04-17] MEDS ORDERED: GUAIFENESIN 600 MG TAB ER PO SCH (10:00)
[2025-04-17 14:40] LABS: ABG O2 SATURATION 95.5 % (94.0-98.0)
[2025-04-17 14:41] LABS: ARTERIAL BLOOD GAS PH 7.376 (7.350-7.450); ARTERIAL BLOOD GAS PO2 76.7 mmHg (83.0-108.0)
[2025-04-17 14:42] LABS: ABG BASE EXCESS 15.3 mmol/L (-2.0-3.0)
[2025-04-17] MEDS ORDERED: SODIUM CHLORIDE 0.9% 1,000 ML IV ONE (17:10)
[2025-04-17] MEDS ORDERED: LASIX20 MG PO (17:55)
[2025-04-17] MEDS ORDERED: IRBESARTAN300 M1 PO (17:58)
[2025-04-17] MEDS ORDERED: WIXELA 250-501 EACH INH (18:02)
[2025-04-17] MEDS ORDERED: HYDROCHLOROTH12.5 M2 PO (18:05)
[2025-04-17] MEDS ORDERED: Menthol/Zinc Oxide 4 GM THIN T SCH (22:00)
[2025-04-17] MEDS ORDERED: AMMONIUM LACTATE 12% LOTION T SCH (22:00)
[2025-04-18] VITALS (10 sets, daily range): BP systolic 138–177; BP diastolic 57–82
[2025-04-18 05:49] LABS: BUN 30 mg/dl (9-23); CHLORIDE 96 mmol/L (98-107); POTASSIUM 4.4 mmol/L (3.4-5.1)
[2025-04-18 06:14] LABS: BASO % 0.4 % (0.0-1.0); EOS % 0.2 % (1.0-4.0); HEMATOCRIT 34.6 % (42.0-52.0); MEAN CORPUSCULAR HGB 27.8 pg (27.0-31.0); MEAN CORPUSCULAR HGB CONC 28.3 g/dl (33.0-37.0); MEAN PLATELET VOLUME 10.9 fl (9.6-12.3); MONO # 0.1 10*3/uL (0.1-1.0); NEUT # 4.4 10*3/uL (2.3-7.9); NEUT % 87.5 % (47.0-73.0); PLATELET COUNT AUTOMATED 187 10*3/uL (130-400); RED BLOOD COUNT 3.53 10*6/uL (4.50-5.90); RED CELL DISTRI WIDTH 15.8 % (0-14.5)
[2025-04-18 08:23] LABS: ABG O2 SATURATION 93.6 % (94.0-98.0); ARTERIAL BLOOD GAS PH 7.421 (7.350-7.450)
[2025-04-18 08:26] LABS: ABG BASE EXCESS 13.1 mmol/L (-2.0-3.0)
[2025-04-18] MEDS ORDERED: hydrALAZINE hydrochloride 20 MG/ML VIAL IV ONE (08:30)
[2025-04-18] MEDS ORDERED: FUROSEMIDE 20 MG TAB PO SCH (10:00)
[2025-04-18] MEDS ORDERED: Losartan Potassium 100 MG TABLET PO SCH (10:00)
[2025-04-18] MEDS ORDERED: METOPROLOL SUCCINATE XR 50 MG TAB PO SCH (10:00)
[2025-04-18] MEDS ORDERED: hydroCHLOROthiazide 12.5 MG CAP PO SCH (10:00)
[2025-04-18] MEDS ORDERED: ASPIRIN, CHEWABLE 81 MG TAB PO SCH (10:00)
[2025-04-19] VITALS: BP 148/58
[2025-04-19 04:00] VITALS: BP 140/47
[2025-04-19 06:27] LABS: BUN 32 mg/dl (9-23); CHLORIDE 96 mmol/L (98-107); POTASSIUM 3.7 mmol/L (3.4-5.1)
[2025-04-19 06:36] LABS: BASO % 0.1 % (0.0-1.0); HEMATOCRIT 31.7 % (42.0-52.0); MEAN CORPUSCULAR HGB 28.1 pg (27.0-31.0); MEAN CORPUSCULAR HGB CONC 29.7 g/dl (33.0-37.0); MEAN PLATELET VOLUME 11.4 fl (9.6-12.3); MONO # 0.5 10*3/uL (0.1-1.0); MONO % 4.1 % (3.0-9.0); NEUT # 9.8 10*3/uL (2.3-7.9); NEUT % 88.2 % (47.0-73.0); RED BLOOD COUNT 3.35 10*6/uL (4.50-5.90); RED CELL DISTRI WIDTH 16.1 % (0-14.5); WHITE BLOOD COUNT 11.1 10*3/uL (4.8-10.8)
[2025-04-19 06:49] LABS: MEAN CELL VOLUME 94.6 fl (80.0-94.0); PLATELET COUNT AUTOMATED 245 10*3/uL (130-400)
[2025-04-19 08:00] VITALS: BP 137/54
[2025-04-19] MEDS ORDERED: METOPROLOL SUCCINATE XR 50 MG TAB PO SCH (08:20)
[2025-04-19] MEDS ORDERED: HEEL PROTECTOR DEVICE ONE (09:24)
[2025-04-19 12:00] VITALS: BP 121/60
[2025-04-19] MEDS ORDERED: FUROSEMIDE 40 MG/4 ML VIAL IV ONE (13:50)
[2025-04-19 16:00] VITALS: BP 109/70
[2025-04-19 20:00] VITALS: BP 145/45
[2025-04-19] MEDS ORDERED: Water, Sterile 10 ML VIAL ONE (21:37)
[2025-04-20] VITALS: BP 155/60
[2025-04-20 04:00] VITALS: BP 145/52
[2025-04-20 05:35] LABS: BUN 40 mg/dl (9-23); CHLORIDE 95 mmol/L (98-107)
[2025-04-20 05:54] LABS: EOS % 0.1 % (1.0-4.0); HEMATOCRIT 32.6 % (42.0-52.0); MEAN CELL VOLUME 94.5 fl (80.0-94.0); MEAN CORPUSCULAR HGB 27.8 pg (27.0-31.0); MEAN CORPUSCULAR HGB CONC 29.4 g/dl (33.0-37.0); MONO # 0.4 10*3/uL (0.1-1.0); MONO % 3.4 % (3.0-9.0); PLATELET COUNT AUTOMATED 242 10*3/uL (130-400); RED BLOOD COUNT 3.45 10*6/uL (4.50-5.90); RED CELL DISTRI WIDTH 17.2 % (0-14.5); WHITE BLOOD COUNT 11.3 10*3/uL (4.8-10.8)
[2025-04-20 08:00] VITALS: BP 158/64
[2025-04-20] MEDS ORDERED: FUROSEMIDE 40 MG/4 ML VIAL IV SCH (10:00)
[2025-04-20] MEDS ORDERED: FUROSEMIDE 40 MG IV SCH (10:00)
[2025-04-20 12:00] VITALS: BP 134/48
[2025-04-20 16:00] VITALS: BP 127/38
[2025-04-20 20:00] VITALS: BP 133/49
[2025-04-21] VITALS: BP 152/56
[2025-04-21 06:48] LABS: EOS % 0.1 % (1.0-4.0); HEMATOCRIT 32.6 % (42.0-52.0); MEAN CELL VOLUME 94.2 fl (80.0-94.0); MEAN CORPUSCULAR HGB 27.7 pg (27.0-31.0); MEAN CORPUSCULAR HGB CONC 29.4 g/dl (33.0-37.0); MEAN PLATELET VOLUME 10.8 fl (9.6-12.3); MONO # 0.7 10*3/uL (0.1-1.0); MONO % 6.7 % (3.0-9.0); NEUT # 8.2 10*3/uL (2.3-7.9); NEUT % 80.6 % (47.0-73.0); PLATELET COUNT AUTOMATED 214 10*3/uL (130-400); RED BLOOD COUNT 3.46 10*6/uL (4.50-5.90); RED CELL DISTRI WIDTH 16.6 % (0-14.5); WHITE BLOOD COUNT 10.2 10*3/uL (4.8-10.8)
[2025-04-21 07:35] LABS: BUN 42 mg/dl (9-23); CHLORIDE 95 mmol/L (98-107)
[2025-04-21 08:00] VITALS: BP 177/54
[2025-04-21 12:00] VITALS: BP 165/64
[2025-04-21 16:00] VITALS: BP 146/61
[2025-04-21] MEDS ORDERED: Ipratropium Brom3 ML NEB (18:14)
[2025-04-21] MEDS ORDERED: LASIX40 MG PO (18:14)
[2025-04-21] MEDS ORDERED: PREDNISONE10 MG PO (18:14)
[2025-04-21] MEDS ORDERED: MUCINEX1200 M1 PO (18:14)
[2025-04-21] MEDS ORDERED: VIBRA-TAB100 MG PO (18:14)
[2025-04-21] MEDS ORDERED: REMEDY CALAZIME4 GM T (18:14)
[2025-04-21] MEDS ORDERED: AMMONIUM LACTA227 GM T (18:14)
[2025-04-21 20:00] VITALS: BP 141/63
== END 2025-04-21 22:40 | DRG 177 ==
LOC: ED 00:43 → EDHOLD 02:33 → ICCU 02:33 → EDHOLD 06:27 → 4E 07:36 → ICCU 09:36 → 4E 04-20 21:27
PROVIDERS: Emergency Medicine; Student in an Organized Health Care Education/Training Program; ADMIT Internal Medicine; ATTEND Internal Medicine
PROC: 5A09357 Assistance with Respiratory Ventilation, Less than 24 Consecutive Hours, Continuous Positive Airway Pressure (ICD-10-PCS; 2025-04-17)
PROC: 0HBRXZZ Excision of Toe Nail, External Approach (ICD-10-PCS; principal; 2025-04-18)
PROC: 0HBRXZZ Excision of Toe Nail, External Approach (ICD-10-PCS; 2025-04-18)
PROC: 0HBRXZZ Excision of Toe Nail, External Approach (ICD-10-PCS; 2025-04-18)
PROC: 0HBRXZZ Excision of Toe Nail, External Approach (ICD-10-PCS; 2025-04-18)
PROC: 0HBRXZZ Excision of Toe Nail, External Approach (ICD-10-PCS; 2025-04-18)
PROC: 0HBRXZZ Excision of Toe Nail, External Approach (ICD-10-PCS; 2025-04-18)
PROC: 0HBRXZZ Excision of Toe Nail, External Approach (ICD-10-PCS; 2025-04-18)
PROC: 0HBRXZZ Excision of Toe Nail, External Approach (ICD-10-PCS; 2025-04-18)
PROC: 0HBRXZZ Excision of Toe Nail, External Approach (ICD-10-PCS; 2025-04-18)
PROC: 0HBRXZZ Excision of Toe Nail, External Approach (ICD-10-PCS; 2025-04-18)
PROC: 5A09357 Assistance with Respiratory Ventilation, Less than 24 Consecutive Hours, Continuous Positive Airway Pressure (ICD-10-PCS; 2025-04-18)
PROC: 5A09357 Assistance with Respiratory Ventilation, Less than 24 Consecutive Hours, Continuous Positive Airway Pressure (ICD-10-PCS; 2025-04-19)
PROC: 5A09357 Assistance with Respiratory Ventilation, Less than 24 Consecutive Hours, Continuous Positive Airway Pressure (ICD-10-PCS; 2025-04-20)
DX: J69.0 Pneumonitis due to inhalation of food and vomit (principal); J96.21 Acute and chronic respiratory failure with hypoxia; J96.22 Acute and chronic respiratory failure with hypercapnia; J44.1 Chronic obstructive pulmonary disease with (acute) exacerbation; I50.32 Chronic diastolic (congestive) heart failure; E87.3 Alkalosis; J44.0 Chronic obstructive pulmonary disease with (acute) lower respiratory infection; K57.32 Diverticulitis of large intestine without perforation or abscess without bleeding; I87.2 Venous insufficiency (chronic) (peripheral); I11.0 Hypertensive heart disease with heart failure; D53.9 Nutritional anemia, unspecified; R73.9 Hyperglycemia, unspecified; B35.1 Tinea unguium; I89.0 Lymphedema, not elsewhere classified; S81.801A Unspecified open wound, right lower leg, initial encounter; R23.4 Changes in skin texture; N40.0 Benign prostatic hyperplasia without lower urinary tract symptoms; S90.111A Contusion of right great toe without damage to nail, initial encounter; E66.01 Morbid (severe) obesity due to excess calories; J20.9 Acute bronchitis, unspecified; Z68.39 Body mass index [BMI] 39.0-39.9, adult; Z79.899 Other long term (current) drug therapy; Z79.01 Long term (current) use of anticoagulants; Z79.2 Long term (current) use of antibiotics; Z87.891 Personal history of nicotine dependence; Z82.49 Family history of ischemic heart disease and other diseases of the circulatory system; X58.XXXA Exposure to other specified factors, initial encounter; Y93.89 Activity, other specified; Y92.89 Other specified places as the place of occurrence of the external cause; Y99.8 Other external cause status

== ENCOUNTER 2025-05-19 14:36 | Emergency (ER) | payer OTHER ==
[~2025-05-19] VITALS: Ht 193 cm; Wt 132.9 kg
[~2025-05-19 14:36] MED LIST changes: +AMMONIUM LACTA227 GM T; +HYDROCHLOROTH12.5 M2 PO; +IRBESARTAN300 M1 PO; +Ipratropium Brom3 ML NEB; +LASIX40 MG PO; +MUCINEX1200 M1 PO; +REMEDY CALAZIME4 GM T; +VIBRA-TAB100 MG PO; +WIXELA 250-501 EACH INH
[2025-05-19] MEDS ORDERED: Naloxone Hydrochloride 2 MG/2 ML SYR IV ONE (15:45)
[2025-05-19] MEDS ORDERED: PROPOFOL 50 ML IV SCH (16:50)
[2025-05-19 17:19] LABS: BASO # 0.0 10*3/uL (0.0-0.1); BASO % 0.2 % (0.0-1.0); EOS # 0.0 10*3/uL (0.0-0.4); EOS % 0.4 % (1.0-4.0); MEAN CELL VOLUME 102.9 fl (80.0-94.0); MEAN CORPUSCULAR HGB 27.8 pg (27.0-31.0); MEAN PLATELET VOLUME 10.5 fl (9.6-12.3); MONO # 0.6 10*3/uL (0.1-1.0); MONO % 7.4 % (3.0-9.0); NEUT # 6.7 10*3/uL (2.3-7.9); NEUT % 79.9 % (47.0-73.0); NUCLEATED RED BLOOD CELL 0.0 10*3/uL (0.0-0.0); NUCLEATED RED BLOOD CELL 0.2 % (0.0-0.0); PLATELET COUNT AUTOMATED 247 10*3/uL (130-400); RED CELL DISTRI WIDTH 15.7 % (0-14.5)
[2025-05-19 17:20] LABS: VENOUS BLOOD GAS O2 SAT 82.1 % (60.0-85.0)
[2025-05-19 17:23] LABS: BUN 29 mg/dl (9-23); CPK 42 U/L (34-171); SGPT/ALT 14 U/L (5-49)
[2025-05-19] MEDS ORDERED: ETOMIDATE 20 MG/10 ML VIAL IV ONE (17:25)
[2025-05-19 17:26] LABS: ETHYL ALCOHOL < 3.0 mg/dl (<3)
[2025-05-19] MEDS ORDERED: ROCURONIUM BROMIDE 50 MG/5 ML SYRINGE IV ONE (17:50)
[2025-05-19] MEDS ORDERED: fentaNYL CITRATE 1,000 MCG in SODIUM CHLORIDE 0.9% 230 ML IV SCH (17:55)
[2025-05-19] MEDS ORDERED: fentaNYL CITRATE 1,000 MCG in SODIUM CHLORIDE 0.9% 230 ML IV ONE (18:00)
[2025-05-19 18:22] LABS: BILIRUBIN Negative (Negative); BLOOD 2+ (Negative); CLARITY Clear (Clear); COLOR Yellow (Yellow); KETONE Negative (Negative); LEUKO ESTERASE 3+ (Negative); NITRITE Positive (Negative); PH 5.5 (4.5-8.0); SPECIFIC GRAVITY 1.010 (1.001-1.030); UROBILINOGEN 0.2 E.U./dl (0.0-1.0)
[2025-05-19 18:43] LABS: BACTERIA 3+; RBC 21-30 rbc/hpf (0-2); WBC TNTC wbc/hpf (0-5)
[2025-05-19 18:46] LABS: URINE AMPHETAMINES Negative (1000ng/ml); URINE BARBITURATES Negative (200ng/ml); URINE BENZODIAZEPINES Negative (200ng/ml); URINE CANNABINOIDS (THC) Negative (50ng/ml); URINE COCAINE Negative (300ng/ml); URINE METHADONE Negative (300ng/ml); URINE OPIATES Negative (300ng/ml); URINE PHENCYCLIDINE Negative (25ng/ml)
[2025-05-19] MEDS ORDERED: PROPOFOL 100 ML IV ONE (23:33)
[2025-05-20] MEDS ORDERED: ROCURONIUM BROMIDE 50 MG/5 ML SYRINGE IV ONE (10:56)
[2025-05-20] MEDS ORDERED: PROPOFOL 200 MG/20 ML VIAL IV ONE (10:56)
[2025-05-20] MEDS ORDERED: ETOMIDATE 20 MG/10 ML VIAL IV ONE (10:56)
== END 2025-05-20 | disposition short-term general hospital (02) ==
LOC: ED 14:36
PROVIDERS: Emergency Medicine
DX: I63.9 Cerebral infarction, unspecified (principal); J96.22 Acute and chronic respiratory failure with hypercapnia; R41.82 Altered mental status, unspecified; Z79.82 Long term (current) use of aspirin; Z79.899 Other long term (current) drug therapy; Z98.890 Other specified postprocedural states